=== PATIENT | female | born 1950 | race Two or more races ===

== ENCOUNTER 2019-01-27 05:43 | Day surgery (SDC) | payer OTHER ==
[~2019-01-27 05:43] MED LIST: ASPIRIN81 M1 PO; CALCI PO; CLONAZEP PO; CRESTOR5 MG PO
[2019-01-27] MEDS ORDERED: NEURONTIN300 MG PO (12:57)
[2019-01-27] MEDS ORDERED: PERCOCET 5-3251 EACH PO (12:57)
[2019-01-27] MEDS ORDERED: RECTICARE30 GM TOP (12:58)
== END 2019-01-27 13:55 | disposition home or self-care (01) ==
LOC: CIR.AMB 05:43
DX: K64.8 Other hemorrhoids (principal); K64.4 Residual hemorrhoidal skin tags